=== PATIENT | female | born 1945 | race Hispanic/Latino ===

== ENCOUNTER 2017-01-21 13:42 | Observation (INO) | payer MEDICARE, BC ==
--- NOTE | 2017-01-21 14:56 | ED PDOC ---
HPI: Back Time Seen by Provider: 01/21/17 14:30 Chief Complaint (Nursing): Back Pain Chief Complaint (Provider): back pain History Per: Patient (71 y/o female notes back pain sudden onset while using swifter at home. No falls/trauma. Notes pain in right thigh and leg as well. Notes pain improves with standing. Denies any urinary or rectal incontinence.) Past Medical History Reviewed: Historical Data, Nursing Documentation, Vital Signs Vital Signs: Last Vital Signs Temp 99.8 F H 01/21/17 13:45 Pulse 85 01/21/17 13:45 Resp 16 01/21/17 13:45 BP 170/99 H 01/21/17 13:45 Pulse Ox 97 01/21/17 13:45 - Family History Family History: States: No Known Family Hx - Home Medications Home Medications: Ambulatory Orders Medication Instructions Recorded Ascorbic Acid [Vitamin C 500 mg 1 tab PO DAILY 01/21/17 Tab] Cholecalciferol [Vitamin D 1000 IU] 1 tab PO DAILY 01/21/17 Folic Acid/Multivit-Min/Lutein 1 tab PO DAILY 01/21/17 [Multi-Vitamin Gummies] Milk Thistle [Milk Thistle] 1 cap PO DAILY 01/21/17 [place]-3 Fatty Acids/Fish Oil 1 gm PO BID 01/21/17 [[place]-3 1,000 mg Softgel] Thyroid [[place] Thyroid] 30 mg PO DAILY 01/21/17 - Allergies Allergies/Adverse Reactions: Allergies Allergy/AdvReac Type Severity Reaction Status Date / Time egg Allergy SWELLING Verified 01/21/17 13:45 metoclopramide [From Reglan] Allergy SWELLING Verified 01/21/17 13:45 Sulfa (Sulfonamide Allergy SWELLING Verified 01/21/17 13:45 Antibiotics) steroids Allergy SWELLING Uncoded 01/21/17 14:11 Review of Systems ROS Statement: Except As Marked, All Systems Reviewed And Found Negative Physical Exam - Reviewed Nursing Documentation Reviewed: Yes Vital Signs Reviewed: Yes - Physical Exam Appears: Positive for: Well, Non-toxic, No Acute Distress Head Exam: Positive for: ATRAUMATIC, NORMAL INSPECTION, NORMOCEPHALIC Skin: Positive for: Normal Color, Warm, DRY Eye Exam: Positive for: EOMI, Normal appearance, PERRL ENT: Positive for: Normal ENT Inspection Neck: Positive for: Normal, Painless ROM Cardiovascular/Chest: Positive for: Regular Rate, Rhythm Respiratory: Positive for: CNT, Normal Breath Sounds Gastrointestinal/Abdominal: Positive for: Normal Exam, Bowel Sounds, Soft Back: Positive for: Normal Inspection, Vertebral Tenderness (lower paralumbar/ parasacral discomfort described) Extremity: Positive for: Normal ROM, Other (2+ DP/PT; 5/5 dorsoflexion/plantar flexion.) Neurologic/Psych: Positive for: Alert, Oriented - Laboratory Results Result Diagrams: 01/21/17 18:12 01/21/17 17:24 - ECG O2 Sat by Pulse Oximetry: 97 - Progress ED Course And Treament: Duplex lower extremity: IMPRESSION: No sonographic or Doppler evidence for DVT in left lower extremity. xry of L spine IMPRESSION: No acute fracture, spondylolysis or spondylolisthesis. Mild multilevel degenerative disc disease in the lower lumbar spine, worse at L5 -S1. Toradal 15 mg iv x 1 dose Morphine 2 mg iv x 1 dose d/w Dr. Howard. Lidoderm patch placed. valium 5 mg x 1 dose given d/w Dr. Lucas d/w Family med resident. Patient with persistent pain. dilaudid 0.5 mg iv x 1 dose Patient noted to have one episode vomiting. NS 500ml iv bolus given. Disposition - Clinical Impression Clinical Impression: Back pain, Acute back pain - Patient ED Disposition Is Patient to be Admitted: Yes - Disposition Disposition Time: 17:31 Condition: FAIR - Pt Status Changed To: Hospital Disposition Of: Observation
--- NOTE | 2017-01-21 15:52 | RAD ---
PROCEDURE: Radiographs of the Lumbar Spine. HISTORY: Back pain COMPARISON: No prior. FINDINGS: BONES: There is normal alignment of the lumbar vertebral bodies. Lumbar lordosis is maintained. Vertebral bodies are normal in height. There is no acute fracture, spondylolysis or spondylolisthesis. There is diffuse bone demineralization. . DISC SPACES: There is mild multilevel degenerative disc disease in the lower lumbar spine with anterior spurring, mild reduced disc heights and multilevel facet arthropathy, worse at L5-S1. OTHER FINDINGS: There are no pathologic soft tissue calcifications. Both sacroiliac joints are normal. IMPRESSION: No acute fracture, spondylolysis or spondylolisthesis. Mild multilevel degenerative disc disease in the lower lumbar spine, worse at L5-S1.
[2017-01-21] MEDS ORDERED: Lidocaine 5% Patch TD STA (16:32)
--- NOTE | 2017-01-21 17:03 | US ---
HISTORY: Left inguinal pain PRIORS: None. FINDINGS: 2-D, color and duplex Doppler analysis of the lower extremity venous circulation using routine protocol from the femoral veins through the popliteal veins. Venous compressibility: Normal. Flow and augmentation patterns: Normal. Visualized veins upper third of calf: Normal. Miller cyst: None. IMPRESSION: No sonographic or Doppler evidence for DVT in left lower extremity.
[2017-01-21] MEDS ORDERED: diaZEpam 10 mg/2 ml Inj ONE (17:11)
[2017-01-21] MEDS ORDERED: Lidocaine 5% Patch TD ONE (17:12)
[2017-01-21 17:32] LABS: BASO % 0.3 % (0.0-2.0); EOS % 0.4 % (0.0-4.0); HEMATOCRIT 41.3 % (34.0-47.0); LYMPH % 9.2 % (20.0-40.0); MEAN CELL VOLUME 97.1 fl (81.0-99.0); MEAN CORPUSCULAR HGB CONC 32.9 g/dL (33.0-37.0); MEAN PLATELET VOLUME 9.8 fl (7.2-11.7); MONO # 0.4 K/uL (0.0-0.8); MONO % 3.6 % (0.0-10.0); NEUT # 9.5 K/uL (1.8-7.0); NEUT % 86.5 % (50.0-75.0); NRBC % 0.1 % (0.0-0.0); PLATELET COUNT 199 K/uL (130-400); RED CELL DISTRIBUTION WIDTH 13.2 % (11.5-14.5); WHITE BLOOD COUNT 10.9 K/uL (4.8-10.8)
[2017-01-21 17:44] LABS: ALB/GLOB RATIO 1.4 (1.0-2.1); ALKALINE PHOSPHATASE 87 U/L (38-126); ALT/SGPT 50 U/L (9-52); AST/SGOT 35 U/L (14-36); BILIRUBIN,TOTAL 0.6 mg/dl (0.2-1.3); BLOOD UREA NITROGEN 14 mg/dl (7-17); CALCIUM 9.6 mg/dL (8.4-10.2); CARBON DIOXIDE 24 mmol/L (22-30); GFR AFRICAN-AMERICAN > 60; GLUCOSE,RANDOM 109 mg/dL (65-105); MAGNESIUM 1.9 MG/DL (1.6-2.3); POTASSIUM 3.9 MMOL/L (3.6-5.0); SODIUM 140 mmol/l (132-148); TOTAL PROTEIN 8.2 G/DL (6.3-8.2)
[2017-01-21] MEDS ORDERED: Oxycodone/Acetaminophen 5/325 mg Tab PO PRN ×2 (17:51→17:56)
[2017-01-21] MEDS ORDERED: HYDROmorphone 0.5 mg/0.5 ml ISec IVP STA (17:54)
[2017-01-21] MEDS ORDERED: HYDROmorphone 0.5 mg/0.5 ml ISec ONE (17:56)
[2017-01-21 18:01] LABS: CHLORIDE 102 mmol/L (98-107)
[2017-01-21 19:19] LABS: NEUTROPHIL 83 % (42-75); TOTAL CELLS COUNTED 100
[2017-01-21] MEDS ORDERED: Sodium Chloride 0.9% 500 ML IV STA (19:21)
--- NOTE | 2017-01-21 20:10 | CP.PCM.HP ---
<Valeria Bardales - Last Filed: 01/21/17 20:34> History of Present Illness - History of Present Illness History of Present Illness: CC: Acute onset lower Back Pain 71F p/w acute onset of lower back pain after performing housecleaning today that began as she sat talking on the phone. She reports it began worsening and was constant and achy in nature. She denies any bowel/bladder/FNDs and denies any prodrome of URI, fevers, chills, dysuria. She then began developing LEFT groin discomfort and LEFT anterior thigh achiness as well. PMH: Hypothyroid PSH: RLE removal of bone chips, Appendectomy, Tonsillectomy LJ: Thyroid Armor 30mg, Daily Allergies: Sulfa (angioedema), Reglan/Compazine(rash), Cipro(weakness?), Steroids (after IM shot pain/swelling) Present on Admission - Present on Admission Any Indicators Present on Admission: No Review of Systems - Review of Systems All systems: reviewed and no additional remarkable complaints except - Musculoskeletal Musculoskeletal: Back Pain Past Patient History - Past Social History Smoking Status: Never Smoked - ENDOCRINE/METABOLIC Hx Hypothyroidism: Yes - GASTROINTESTINAL Hx Fatty Liver Disease: Yes - PSYCHIATRIC Hx Substance Use: No - SURGICAL HISTORY Hx Appendectomy: Yes Hx Orthopedic Surgery: Yes Hx Tonsillectomy: Yes Meds Allergies/Adverse Reactions: Allergies Allergy/AdvReac Type Severity Reaction Status Date / Time egg Allergy SWELLING Verified 01/21/17 13:45 metoclopramide [From Reglan] Allergy SWELLING Verified 01/21/17 13:45 Sulfa (Sulfonamide Allergy SWELLING Verified 01/21/17 13:45 Antibiotics) steroids Allergy SWELLING Uncoded 01/21/17 14:11 Physical Exam - Constitutional Appears: Well, Non-toxic, No Acute Distress - Head Exam Head Exam: ATRAUMATIC - Eye Exam Eye Exam: EOMI, Normal appearance, PERRL - ENT Exam ENT Exam: Mucous Membranes Moist, Normal Exam - Neck Exam Neck exam: Positive for: Full Rom, Normal Inspection. Negative for: Lymphadenopathy - Respiratory Exam Respiratory Exam: Clear to Auscultation Bilateral, NORMAL BREATHING PATTERN. absent: Rales, Rhonchi, Wheezes - Cardiovascular Exam Cardiovascular Exam: REGULAR RHYTHM, +S1, +S2 - GI/Abdominal Exam GI & Abdominal Exam: Normal Bowel Sounds, Soft. absent: Tenderness - Back Exam Back exam: muscle spasm (LEFT superior gluteus), NORMAL INSPECTION, tenderness ( LEFT superior gluteus). absent: CVA tenderness (L), CVA tenderness (R) - Neurological Exam Neurological exam: Alert, CN II-XII Intact, Normal Gait, Oriented x3, Reflexes Normal - Skin Skin Exam: Dry, Intact, Normal Color, Warm Results - Vital Signs Recent Vital Signs: Last Vital Signs Temp 36.6 C 01/21/17 19:37 Pulse 97 H 01/21/17 19:37 Resp 17 01/21/17 19:37 BP 136/70 01/21/17 19:37 Pulse Ox 96 01/21/17 19:37 - Labs Result Diagrams: 01/21/17 18:12 01/21/17 17:24 Labs: Laboratory Results - last 24 hr 01/21/17 01/21/17 17:24 18:12 WBC 10.9 H RBC 4.26 Hgb 13.6 Hct 41.3 MCV 97.1 MCH 32.0 H MCHC 32.9 L RDW 13.2 Plt Count 199 MPV 9.8 Neut % (Auto) 86.5 H Lymph % (Auto) 9.2 L [place] % (Auto) 3.6 Eos % (Auto) 0.4 Baso % (Auto) 0.3 Neut # 9.5 H Lymph # 1.0 [place] # 0.4 Eos # 0.0 Baso # 0.0 Neutrophils % (Manual) 83 H Band Neutrophils % 2 Lymphocytes % (Manual) 11 L Monocytes % (Manual) 4 Toxic Granulation Present Platelet Estimate Normal Macrocytosis (manual) Slight Sodium 140 Potassium 3.9 Chloride 102 Carbon Dioxide 24 Anion Gap 20 BUN 14 Creatinine 0.6 L Est GFR ( Amer) > 60 Est GFR (Non-Af Amer) > 60 Random Glucose 109 H Calcium 9.6 Magnesium 1.9 Total Bilirubin 0.6 AST 35 ALT 50 Alkaline Phosphatase 87 Total Protein 8.2 Albumin 4.8 Globulin 3.4 Albumin/Globulin Ratio 1.4 Assessment & Plan (1) Acute back pain Assessment and Plan: At this time suspect muscle spasm vs. urolithiasis as X-ray CT lumbar spine w/o acute bony abnormality. Urine dip was negative for blood and CMP was completely WNL. - Admit for Obs - Pain control - CT non-contrast abd/pelvis evaluate for bony abnormality vs. urolithiasis Status: Acute (2) DVT prophylaxis Assessment and Plan: SCDs Status: Acute (3) Hypothyroid Assessment and Plan: Asymptomatic, controlled. C/w home medication Status: Chronic <Waqar Coronado - Last Filed: 01/23/17 07:00> Results - Vital Signs Recent Vital Signs: Last Vital Signs Temp 98.2 F 01/22/17 17:00 Pulse 74 01/22/17 17:00 Resp 20 01/22/17 17:00 BP 108/72 01/22/17 17:00 Pulse Ox 94 L 01/22/17 17:00 - Labs Result Diagrams: 01/21/17 18:12 01/21/17 17:24 Attending/Attestation - Attestation I have personally seen and examined this patient.: Yes I have fully participated in the care of the patient.: Yes I have reviewed all pertinent clinical information: Yes
--- NOTE | 2017-01-21 21:31 | CT ---
EXAM: CT Abdomen and Pelvis Without Intravenous Contrast CLINICAL HISTORY: 71 years old, female; Pain; Other: Lower back , left groin pain; Prior surgery; Surgery date: 6+ months; Surgery type: Appendectomy; Additional info: R/O renal colic R/O compression FX. Sent x-rays of lumbar sp. From today TECHNIQUE: Axial computed tomography images of the abdomen and pelvis without intravenous contrast. All CT scans at this facility use one or more dose reduction techniques, viz.: automated exposure control; ma/kV adjustment per patient size (including targeted exams where dose is matched to indication; i.e. head); or iterative reconstruction technique. Coronal and sagittal reformatted images were created and reviewed. COMPARISON: No relevant prior studies available. Reference is made to plain film evaluation of the lumbar spine, performed on the same day. FINDINGS: Lower thorax: The bilateral lung bases are clear. ABDOMEN: Liver: No acute findings Gallbladder and bile ducts: The gallbladder is minimally distended, without calcified stones. No intra-extrahepatic biliary ductal dilation. Pancreas: Limited evaluation secondary to the lack of intravenous contrast. Spleen: No acute findings. Adrenals: No acute findings. Kidneys and ureters: No obstructing stones. No hydronephrosis. PELVIS: Bladder: No acute findings. Reproductive: No acute findings. Appendix: Surgically absent. ABDOMEN and PELVIS: Stomach and bowel: No acute findings. Colonic diverticulosis, without inflammation. A fat containing umbilical hernia is present. Peritoneum: No acute findings. Lymph nodes: Limited evaluation without intravenous contrast. Vasculature: No aortic aneurysm. Bones: No acute compression fracture within the lumbar spine. IMPRESSION: No obstructive uropathy. Fat containing umbilical hernia. Diverticulosis, without inflammation.
[2017-01-22] MEDS: Omega-3-Acid Ethyl Esters 1 GM Cap PO SCH ×2 (08:53→17:15)
[2017-01-22] MEDS ORDERED: Multivitamin With Minerals Tab PO SCH (09:00)
[2017-01-22] MEDS ORDERED: MILK THISTLE PO SCH (09:00)
[2017-01-22] MEDS ORDERED: THYROID 30 MG TAB PO SCH (09:00)
[2017-01-22 16:42] VITALS: BP 108/72; PULSE 74; RESP 20; TEMP 98.2; O2SAT 94
== END 2017-01-22 18:50 | disposition home or self-care (01) ==
LOC: H.ER 13:42 → H.ERHOLD 17:31 → H.MEDSURG1 21:02
PROVIDERS: ADMIT Family Medicine; ATTEND Family Medicine
DX: M54.5 Low back pain (principal); E03.9 Hypothyroidism, unspecified; Z88.2 Allergy status to sulfonamides; Z91.012 Allergy to eggs
CPT/HCPCS: 72114; 74176; 80053; 83735; 85025; 93971; 96374; 97161; 99283; G0378; G8978; G8979; G8980; J1170; J1885; J7040